=== PATIENT | male | born 1990 | race Two or more races ===

== ENCOUNTER 2020-02-11 16:45 | Emergency (ER) | payer OTHER ==
[~2020-02-11] VITALS: Ht 182.9 cm; Wt 90.1 kg
[2020-02-11 17:49] LABS: BASOPHILS % (AUTO) 0 % (0-1); EOSINOPHILS % (AUTO) 2 % (1-7); LYMPHOCYTES % (AUTO) 30 % (22-44); MEAN CORPUSCULAR HEMOGLOBIN 31.3 pg (27.5-34.5); MEAN CORPUSCULAR HGB CONC 34.6 g/dL (33.2-36.2); MEAN PLATELET VOLUME 7.9 fL (7.4-10.4); MONOCYTES % (AUTO) 7 % (2-9); NEUTROPHILS % (AUTO) 61 % (42-75); PLATELET COUNT 203 x10^3/uL (130-400); RED BLOOD COUNT 5.24 x10^6/uL (4.38-5.82); RED CELL DISTRIBUTION WIDTH 12.9 % (9.4-14.8)
[2020-02-11 17:57] LABS: ALBUMIN 4.5 g/dL (3.4-5.0); ANION GAP 5 mmol/L (5-15); CALCIUM 9.1 mg/dL (8.5-10.1); CHLORIDE 107 mmol/L (98-107); CREATININE 1.03 mg/dL (0.7-1.3)
[2020-02-11 18:01] LABS: TROPONIN I < 0.015 ng/mL (0.000-0.045)
[2020-02-11 18:05] LABS: MD NO
--- NOTE | 2020-02-11 19:43 | NUR ---
RESERVATIONS AGENT: PT WALKED BACK FROM LOBBY TO ROOM AT THIS TIME.
--- NOTE | 2020-02-11 20:10 | NUR ---
Ultrasound at bedside
--- NOTE | 2020-02-11 20:40 | NUR ---
PT RESTING IN ROOM. REGULAR RESP. NO ACUT DISTRESS NOTED. WILL CONTINUE TO MONITOR.
[2020-02-11 21:16] LABS: MICROSCOPIC NOT IND
--- NOTE | 2020-02-11 21:18 | NUR ---
PATIENT RESTING IN ROOM. REGULAR RESP. NO ACUTE DISTRESS NOTED. CALL LIGHT IN PLACE. WILL CONTINUE TO MONITOR.
--- NOTE | 2020-02-11 21:54 | NUR ---
PATIENT RESTING IN ROOM. REGULAR RESP. NO ACUTE DISTRESS NOTED. CALL LIGHT IN PLACE. WILL CONTINUE TO MONITOR.
--- NOTE | 2020-02-11 22:32 | NUR ---
TASK RN: PT D/C WITH D/C SUMMARY AND VERBALIZES NEED FOR F/U APPT WITH CARDS/MADRID. ALL QUESTIONS ANSWERED. PT VITAL SIGNS STABLE AND UPDATED IN EMR PRIOR TO PT D/C. PT AMBULATES TO REGISTRATION DESK WITH STEADY GAIT AND DENIES ANY OTHER NEEDS PERTAINING TO THIS VISIT.
[2020-02-11 22:33] VITALS: BP 103/59
== END 2020-02-11 22:36 | disposition home or self-care (01) ==
LOC: ED 20:49
DX: G89.29 Other chronic pain (principal); R10.9 Unspecified abdominal pain; I45.10 Unspecified right bundle-branch block; R07.89 Other chest pain; R94.31 Abnormal electrocardiogram [ECG] [EKG]
CPT/HCPCS: 36415; 71045; 76770; 80048; 81003; 82040; 84484; 85025; 85379; 93005; 99285

== ENCOUNTER 2020-05-13 07:38 | Outpatient (CLI) | payer OTHER | END 2020-05-13 23:59 | disposition home or self-care (01) | LOC: CFH 07:38 | PROVIDERS: ATTEND Internal Medicine Cardiovascular Disease | DX: R07.9 Chest pain, unspecified (principal) | CPT/HCPCS: 93306 ==